=== PATIENT | female | born 1955 | race Caucasian/White ===

== ENCOUNTER → 2017-05-16 | Outpatient (CLI) | payer OTHER ==
[~2017-05-16] MED LIST: ACETAMINOPHEN 325 MG TAB As Ordered ONE; LIDOCAINE 1% MDV 20ML VIAL As Ordered ONE
--- NOTE | 2017-05-16 19:29 | REP ---
Ultrasound-guided liver biopsy The procedure was performed under the direct supervision of Dr. Contreras. The risks and benefits of the procedure were explained to the patient and informed consent was obtained. The left lobe of the liver was localized using ultrasound guidance. The skin was prepped and draped in a sterile fashion. 1% Xylocaine was used as a local anesthetic. Using ultrasound guidance a 19/20 gauge coaxial needle biopsy system was inserted and advanced into the liver. Four core biopsy samples were obtained and sent to lab. Post biopsy ultrasound images demonstrate a small 2.4 cm hematoma at the liver capsule. Pressure was held at the site for approximately 5 minutes. Follow-up ultrasound images show no change in the size of the. Initially the patient's pain with a 9/10. After the 5-minute interval the patient's pain went to 5 out of 10. approximately a 1/2 hour before she was discharged her pain dropped to 2 out of 10. The patient tolerated the procedure well and there were no immediate complications. After the appropriate amount of monitored convalescence the patient was discharged from the department. Reviewed by JAMILAH Hopkins 05/16/2017 02:59 PSigned by Oli Contreras MD 05/16/2017 07:20 P
== END ==
LOC: M RADPRO 08:21
PROVIDERS: ATTEND Nurse Practitioner Adult Health
DX: R74.9 Abnormal serum enzyme level, unspecified (principal); Z88.8 Allergy status to other drugs, medicaments and biological substances; Z91.018 Allergy to other foods; Z72.0 Tobacco use; Z79.899 Other long term (current) drug therapy

== ENCOUNTER → 2018-06-22 | Outpatient (CLI) | payer OTHER | LOC: M CARPUL 08:40 | DX: M34.1 CR(E)ST syndrome (principal) | CPT/HCPCS: 94060 ==

== ENCOUNTER → 2018-06-22 | Outpatient (CLI) | payer OTHER | LOC: M CARPUL 08:35 | DX: M34.1 CR(E)ST syndrome (principal); I27.20 Pulmonary hypertension, unspecified | CPT/HCPCS: 93306 ==